=== PATIENT | female | born 1990 | race Caucasian/White ===

== ENCOUNTER 2017-02-11 21:18 | Emergency (ER) | payer MEDICAID ==
[2017-02-11 21:42] VITALS: BP 116/68
[2017-02-11 23:35] LABS: CHLORIDE,CL 102 mmol/L (101-111); SODIUM,NA 140 mmol/L (135-145)
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
--- NOTE | 2017-02-16 09:01 | EKG ---
02/11/2017- [facility] GONZALES - Twelve-lead EKG shows normal sinus rhythm. No significant ST elevation or ST depression noted on this 12-lead EKG. [facility] /[id number]
== END 2017-02-12 00:26 | disposition home or self-care (01) ==
LOC: DL.ED 21:18
DX: R07.89 Other chest pain (principal); J45.909 Unspecified asthma, uncomplicated; Z90.49 Acquired absence of other specified parts of digestive tract
CPT/HCPCS: 36415; 71010; 80053; 84703; 85025; 93005; 99285

== ENCOUNTER 2025-04-01 00:01 | Inpatient (IN) | payer MEDICAID ==
[~2025-04-01 00:01] MED LIST: Carboprost Tromethamine 250 MCG/1 ML Amp IM PRN; Oxytocin/Lactated Ringers 30 UNIT/500 ML BAG IV SCH; Sodium Chloride 0.9% 10 ML Syringe FLUSH PRN; fentaNYL 100 MCG/2 ML SDV IVPUSH PRN
[2025-04-01] MEDS ORDERED: Misoprostol 50 MCG (1/2 of 100 MCG) Tab PO SCH (00:30)
[2025-04-01 00:57] LABS: PLATELET COUNT,PLT 264.0 10^3/uL (150-450); RED BLOOD CELL COUNT 3.82 10^6/uL (4.2-5.4); WHITE BLOOD CELL COUNT,WBC 10.6 10^3/uL (5.0-10.0)
[2025-04-01] MEDS: Misoprostol 25 MCG (1/4 of 100 MCG) Tab VAG ONE (01:10)
[2025-04-01] MEDS: Ondansetron 4 MG/2 ML SDV IVPUSH PRN (04:05)
[2025-04-01] MEDS ORDERED: Misoprostol 25 MCG (1/4 of 100 MCG) Tab VAG SCH (04:30)
[2025-04-01] MEDS: Lactated Ringers 1,000 ML IV SCH (04:40)
[2025-04-01] MEDS: Oxytocin/Normal Saline 30 UNIT/500 ML BAG IV SCH (09:58)
[2025-04-01] MEDS ORDERED: Carboprost Tromethamine 250 MCG/1 ML Amp IM PRN (11:25)
[2025-04-01] MEDS ORDERED: Oxytocin 10 Units/1 ML SDV IM PRN (11:25)
[2025-04-01] MEDS ORDERED: Sodium Chloride 0.9% 10 ML Syringe FLUSH PRN (11:25)
[2025-04-01] MEDS ORDERED: Acetaminophen/HYDROcodone 325-10 MG Tab PO ONE (12:00)
[2025-04-01] MEDS: Terbutaline 1 MG/ML SDV SUBCUT ONE (14:04)
[2025-04-01] MEDS: Lactated Ringers 1,000 ML IV ONE (14:04)
[2025-04-01] MEDS: Witch Hazel Medicated Pads 100/Jar TOP PRN (15:18)
[2025-04-01] MEDS: Benzocaine/Menthol 20%-0.5% Spray 78 GM Cannister TOP PRN (15:19)
[2025-04-01] MEDS: Acetaminophen/oxyCODONE 325-5 MG Tab PO PRN (19:37)
[2025-04-02] MEDS: Prenatal Multivitamin with Calcium/Folic Acid/Iron Tab PO SCH (09:05)
[2025-04-02 16:34] VITALS: BP 132/74; PULSE 100
== END 2025-04-02 14:40 | disposition home or self-care (01) | DRG 807 ==
LOC: DL.OB 00:01 → OBSVTOIN 10:32 → DL.OB 10:32
PROVIDERS: ADMIT Student in an Organized Health Care Education/Training Program; ATTEND Student in an Organized Health Care Education/Training Program
PROC: 10907ZC Drainage of Amniotic Fluid, Therapeutic from Products of Conception, Via Natural or Artificial Opening (ICD-10-PCS; principal; 2025-04-01)
PROC: 30233S1 Transfusion of Nonautologous Globulin into Peripheral Vein, Percutaneous Approach (ICD-10-PCS; principal; 2025-04-01)
PROC: 3E0R3BZ Introduction of Anesthetic Agent into Spinal Canal, Percutaneous Approach (ICD-10-PCS; principal; 2025-04-01)
PROC: 0HQ9XZZ Repair Perineum Skin, External Approach (ICD-10-PCS; principal; 2025-04-01)
PROC: 10D07Z6 Extraction of Products of Conception, Vacuum, Via Natural or Artificial Opening (ICD-10-PCS; principal; 2025-04-01)
PROC: 3E0DXGC Introduction of Other Therapeutic Substance into Mouth and Pharynx, External Approach (ICD-10-PCS; principal; 2025-04-01)
DX: O99.214 Obesity complicating childbirth (principal); Z37.0 Single live birth; Z3A.39 39 weeks gestation of pregnancy; Z85.850 Personal history of malignant neoplasm of thyroid; Z90.49 Acquired absence of other specified parts of digestive tract; Z98.890 Other specified postprocedural states; Z79.899 Other long term (current) drug therapy; Z88.8 Allergy status to other drugs, medicaments and biological substances; O70.0 First degree perineal laceration during delivery
CPT/HCPCS: 36415; 36430; 51701; 59409; 85014; 85018; 85027; 85461; 86592; 86850; 86870; 86900; 86901; A9270-GY; J2405; J2590; J2765; J2791; J7120